=== PATIENT | male | born 1940 | race Caucasian/White ===

== ENCOUNTER → 2016-12-07 | Outpatient (CLI) | payer MEDICARE ==
[2016-12-07 12:29] LABS: Blood Urea Nitrogen 14 mg/dL (9-20); Non-African American GFR(MDRD) >60 (>60 ml/min/1.73 sqM)
--- NOTE | 2016-12-07 13:49 | CT ---
"EXAMINATION TYPE: CT soft tissue neck w con DATE OF EXAM: 12/07/2016 HISTORY: Left sided tongue swelling and difficulty talking COMPARISON: CT neck dated 10/17/2015. CT DLP: 397.1 mGycm. Automated Exposure Control for Dose Reduction was Utilized. TECHNIQUE: CT scan of the neck is performed with IV Contrast, patient injected with 100 mL of Omnipa que 300, axial images are obtained, coronal and sagittal reformatted images are reviewed. FINDINGS: Centered within the anterior two thirds of the lateral right tongue there is an ill-defined area of h yperattenuation measuring at least 4.2 x 1.4 x 3.5 cm. Adjacent adenopathy is described below. There is no airway compromise although there is slight narrowing of the oropharynx as there is edema of the tongue base. There is asymmetric enlargement of the right submandibular gland in comparison to the l eft. Parotid/submandibular glands: No gross abnormality seen. Carotid/Vascular Structures: As noted on the prior examination of 10/17/2015 there is significant ost ial atherosclerosis at the origin of the left vertebral artery. Additionally calcific atherosclerosis is seen at the bilateral carotid bulbs, right greater than left similar to the prior examination wit h at least 30% stenosis on the right. Osseous Structures: No suspicious osseous lesions are seen. Degenerative changes of the cervical spin e are present as well as straightening of the usual cervical lordosis. Other: A centrally necrotic 1.5 x 1.5 cm right upper lobe pulmonary mass the proximal abutting the pl eural surface has developed in the interim and the background of mild centrilobular emphysematous cari nges. Additionally within the pmaoa-[id number] in the medial right upper lobe near the azygo-esophageal recess an additional 1.3 cm pulmonary nodule is identified as well as partial visualization of a pleu ral-based 2 mm pulmonary nodule in the left lower lobe. Lastly within the left upper lobe a 7 mm pulm onary nodule near the ascending aorta and mediastinal border is now seen. Mediastinal clips and jade otomy wires are present from prior coronary artery bypass. Calcific atheromatous changes are also see n in the ascending aorta. Multiple prominent mediastinal lymph nodes are partially visualized. Left s upraclavicular adenopathy, and necrotic anterior cervical chain lymph with impression upon the nutrition intern al jugular vein on series 3 image 58 is seen. Submental and submandibular adenopathy is also seen jose aterally as well as anterior cervical chain lymph nodes on the right measuring up to 1.2 cm in short axis. Fat stranding is seen posterior to the right sternocleidomastoid at the level of the hyoid bone where additional enlarged lymph nodes are present. IMPRESSION: 1. Heterogenous mass centered in the anterior two thirds of the right tongue at the right lateral mar gin. No apparent involvement of the tongue base. Extensive adenopathy of the head, neck, and to a les ser degree the mediastinum as well as at least 4 new pulmonary nodules. Findings are concerning for h ead and neck carcinoma such as squamous cell carcinoma with metastasis versus primary pulmonary neopl asm or synchronous cancers. A Red message has been communicated to Usman Silva DO via the [employer] | Critical Re sult system on 12/07/2016 1:47 PM, Message ID [id number]."
== END | disposition home or self-care (01) ==
LOC: RADCTMAIN 11:59
PROVIDERS: ATTEND Otolaryngology
DX: K14.8 Other diseases of tongue (principal); R59.0 Localized enlarged lymph nodes
CPT/HCPCS: 82565; 84520; 70491; 36415; Q9967

== ENCOUNTER → 2016-12-19 | Outpatient (CLI) | payer MEDICARE ==
--- NOTE | 2016-12-20 09:49 | PE ---
EXAMINATION TYPE: PET CT fusion skull to thigh DATE OF EXAM: 12/19/2016 COMPARISON: CT soft tissue neck 12/07/2016 Prior PET/CT: None HISTORY: Tongue cancer, postsurgical TECHNIQUE: Following the intravenous administration of 15.5 mCi of F-18 FDG, whole body images are p erformed from the skull base to the midthigh. Images are reviewed on the computer in the coronal, ax ial, and sagittal planes. Reconstructed rotating images are created on independent workstation and r eviewed on the computer. A localization and attenuation correction CT is performed in conjunction w ith the PET scan. DLP: 359.43 mGycm SCAN: Initial Blood glucose: 137 mg/dL Average Mediastinum SUV: 1.3 Average Liver SUV: 2.2 FINDINGS: NECK: There is increased uptake within the right aspect of the tongue region. This has an SUV value of 9.6 compatible with the patient's reported tonsillar neoplasm. There is some focal radiotracer ac cumulation along the posterior lateral right tongue which is an extension of the patient's primary. There is focal radiotracer accumulation within the right parapharyngeal space with an SUV value of 4. 3 compatible with a metastatic lesion. There are multiple lymph nodes with increased radiotracer acc umulation within the neck probably along the right side. This includes radiotracer below the sternocl eidomastoid muscle on the right measuring 4.5 SUV, below the right parotid gland measuring 5.6, subma ndibular uptake of 10.4. There is also abnormal uptake within the right mandible with an SUV value of 8.1 and within the anterior left mandible measuring 5.1 submental uptake measures 6.6 and is left of midline. There is left submandibular uptake measuring 9.0 left submandibular uptake measures 10.0. L eft jugulodigastric lymphadenopathy is abnormal uptake. There is some subtle uptake in the right supr aclavicular region with an SUV value of 4.5 suspicious for an additional metastatic lesion at the lev el of the thyroid. This last area appears better visualized on the whole body imaging. THORAX: There is focal radiotracer accumulation within a posterior lateral right upper lobe mass with an SUV value of 7.8. A posterior medial lesion adjacent to the mediastinum within the right lung has an SUV value of 6.2. PET image 81 abnormal uptake is within the lingula with an SUV value 2.2 suspic ious for small metastatic lesion. ABDOMEN: Liver is somewhat heterogenous. Suspicious focal uptake is not identified. PELVIS: Increased radiotracer accumulation is at the level of the rectum with an SUV value of 2.9. Ev aluation of this area is recommended. OSSEOUS STRUCTURES: There is some uptake at the right acromioclavicular junction which can be compati ble with inflammatory change. Suspicious uptake was discussed on CT of the neck within the mandible o n the right and left. Additional suspicious metastatic lesions are not identified. LOCALIZATION CT: Cholelithiasis. Prostate is prominent. The ascending thoracic aorta at the level the main pulmonary artery measures 3.5 cm. The main pulmonary artery at the bifurcation measures 3.0 cm . The lymph node adjacent to the main pulmonary artery has an SUV value 1.1 which could be inflammato ry in nature. COMPARISON: Uptake within multiple enlarged nodes on the comparison CT examination and are evident PE T scan. PET scan better demonstrates the metastatic lesions as some of these lymph nodes are borderli ne in size. IMPRESSION: 1. Patient's right-sided tongue neoplasm has marked elevation of radiotracer. 2. Multiple lymph nodes within the neck on both left and right sides as well as submental region on r ight parapharyngeal space and right supraclavicular region are evident compatible with metastatic les ions present bilaterally. 3. Multiple bilateral lung nodules with elevated radiotracer compatible with metastatic lesions. Abno rmal mediastinal adenopathy however is not identified. 4. There is some abnormal uptake within the right and left mandible which could be metastatic lesions . Additional osseous metastases are not identified.
== END | disposition home or self-care (01) ==
LOC: RADPETMAIN 09:10
PROVIDERS: ATTEND Internal Medicine Hematology & Oncology
DX: C76.0 Malignant neoplasm of head, face and neck (principal); R91.8 Other nonspecific abnormal finding of lung field
CPT/HCPCS: 78815; A9552

== ENCOUNTER 2016-12-31 08:46 | Day surgery (SDC) | payer MEDICARE ==
[2016-12-31] MEDS ORDERED: HYDROmorphone 1 MG/ML 1 ML SYRINGE IVP PRN (09:09)
[2016-12-31 09:14] VITALS: RESP 20; TEMP 98
[2016-12-31 09:18] LABS: Mean Platelet Volume 7.5
[2016-12-31 09:24] LABS: INR 1.1 (<1.2); Prothrombin Time 11.2 sec (9.0-12.0)
[2016-12-31 10:10] VITALS: BP 158/67; PULSE 75
--- NOTE | 2016-12-31 10:38 | CT ---
EXAMINATION TYPE: CT discontinued procedure DATE OF EXAM: 12/31/2016 COMPARISON: NONE HISTORY: Lung mass CT DLP: 434 mGycm Automated exposure control for dose reduction was used. FINDINGS: The risks and complications were discussed with the patient. The patient refused the procedure. IMPRESSION: PATIENT DEFERRED THE PROCEDURE.
== END 2016-12-31 10:30 | disposition home or self-care (01) ==
LOC: RADPROMAIN 08:46
PROVIDERS: ATTEND Internal Medicine Hematology & Oncology
DX: R91.8 Other nonspecific abnormal finding of lung field (principal); Z53.20 Procedure and treatment not carried out because of patient's decision for unspecified reasons; C76.0 Malignant neoplasm of head, face and neck
CPT/HCPCS: 36415; 76380; 85049; 85610

== ENCOUNTER → 2017-03-13 | Outpatient (CLI) | payer MEDICARE ==
--- NOTE | 2017-03-14 14:18 | PE ---
Nuclear medicine PET/CT HISTORY: Head and neck cancer, subsequent visit Patient received 14.5 mCi of F-18 FDG intravenously. Delayed scanning was performed from the skull ba se to the mid thighs. Small [id number] imaging performed through the head and neck. Correlation to prior nuclear medicine PET/CT 12/19/2016. Head and neck: Multiple bilateral foci of hypermetabolic uptake corresponding to lymph nodes are pres ent, bilateral submandibular location, bilateral nodes at the level of the hyoid bone are enlarged. S UV is 3.4-5.4. More inferiorly deep to the sternocleidomastoid muscle there are nonenlarged nodes whi ch show hypermetabolic uptake, SUV is 2.6 on the right. The right side of the tongue shows hypermetab olic uptake. SUV is 7.6. More inferiorly towards the base of the tongue the right side of the vallecu la occurs of hypermetabolic uptake is present, SUV is 4.5. Parapharyngeal uptake seen on previous exa m is no longer seen on the right. Multiple bilateral nodes have decreased in size as compared to prev ious exam. There is some improvement in hypermetabolic uptake as compared to prior exam. CHEST: Right upper lobe pleural-based posterior soft tissue nodule measures 18 mm which is decreased from prior exam when it measured 21 mm. There is associated hypermetabolic uptake. SUV is 7. The righ t lower lobe nodule seen on prior exam which measured approximately 18 mm now only measures approxima tely 8 to 9 mm in size. Abdomen pelvis: Gallstones are noted. No evident adrenal or liver mass. No suspicious hypermetabolic uptake. Osseous structures are remarkable for a focus of uptake in the right maxilla, SUV 3.6 possibly relate d to dental disease, recommend direct visualization. Generalized marrow activity may be due to therap y. IMPRESSION: There is tumor response to therapy.
== END | disposition home or self-care (01) ==
LOC: RADPETMAIN 07:42
PROVIDERS: ATTEND Internal Medicine Hematology & Oncology
DX: C76.0 Malignant neoplasm of head, face and neck (principal)
CPT/HCPCS: 78815; A9552

== ENCOUNTER → 2017-07-03 | Outpatient (CLI) | payer MEDICARE ==
--- NOTE | 2017-07-04 16:04 | PE ---
EXAMINATION TYPE: PET CT fusion skull to thigh DATE OF EXAM: 07/03/2017 COMPARISON: 12/07/2016 Prior PET/CT: 03/13/2017 HISTORY: Tongue cancer TECHNIQUE: Following the intravenous administration of 13.037 mCi of F-18 FDG, whole body images are performed from the skull base to the midthigh. Images are reviewed on the computer in the coronal, axial, and sagittal planes. Reconstructed rotating images are created on independent workstation and reviewed on the computer. A localization and attenuation correction CT is performed in conjunction with the PET scan. DLP: 67.6 by mGycm SCAN: Subsequent follow-up Blood glucose: 120 mg/dL Average Mediastinum SUV: 1.78 Average Liver SUV: 2.54 FINDINGS: NECK: There is intense uptake within the region of the right aspect of the tongue. Some mass effect is evident. The SUV value of 6.35 compatible with neoplasm. This extends to the right posterior later al region of the tongue near the right tonsillar pillar. There are 2 hyperintense lymph nodes in the submandibular region on the right with an SUV value of 3. 18 and 3.53. PET image 28. A more subtle area of uptake is in the contralateral left submandibular re gion with an SUV value 2.33 again suspicious for metastatic lesion. A lymph node in the parotid regio n has an SUV of 3.72 suspicious for metastasis. Additional lymph nodes are in the jugulodigastric reg ions bilaterally with SUV values of 3.19 on the left and 2.98 on the right. Uptake within the right s ternocleidomastoid muscle region at image 43 has an SUV value 2.59. Dedicated head and neck imaging is performed. This better delineates the abnormal uptake within the r ight aspect of the tongue as well as within the bilateral lymphadenopathy. THORAX: There is a focal area of marked increased radiotracer in the posterior lateral right apex wit h an SUV value of 8.5 suspicious for neoplasm. Small focus of radiotracer accumulation may be within the left internal mamillary chain with an SUV value 1.3. PET image 79 This could be inflammatory but is very small and could be early metastasis. Couple of additional areas of increased uptake in an int ermediate range are in the right internal mamillary chain region measuring SUV value 1.17. A suspicio us lymph node is in the posterior lateral superior mediastinum PET image 85. With an SUV value of 8.4 6 suspicious for metastasis. Image 82 ABDOMEN: No abnormal uptake PELVIS: No abnormal uptake OSSEOUS STRUCTURES: There is abnormal uptake within the mid thoracic vertebral body posterior lateral right aspect with an SUV value of 3.42 suspicious for osseous metastasis. LOCALIZATION CT: Lymphadenopathy in the right submandibular region measures 0 cm in transverse dimens ion. Lymphadenopathy within the left submandibular region measures 0.8 cm. Jugulodigastric lymphadeno roe measures 1.3 cm left and 1.0 cm on the right. Note is made of some asymmetry within the hypopha rynx on the right which does not have abnormal uptake on the PET scan. The tongue mass is not discret kym identified although the asymmetry due to the timing mass is evident. Note is made of cholelithias is. Lung mass in the posterior lateral periphery right apex measures 4.2 x 2.9 cm on mediastinal windows. Series 8 image 69. The nodule within the medial right lung measures 1.7 cm. Series 9. COMPARISON: Lymphadenopathy within the neck is more extensive and more numerous than on the compariso n study of 03/13/2017. This extends further down the chain towards the supraclavicular region as well as additional lymph nodes present bilaterally. The mass in the posterior lateral right apex has incr eased in size over the interval. Medial right lung nodule is increased in size. The metastatic lesion within the thoracic spine is new. IMPRESSION: 1. Worsening distribution of metastatic disease including additional bilateral lymphadenopathy within the cervical chain nodes, increasing size of the right apical lung mass and new uptake identified in the mediastinal lymph node and within the mid thoracic vertebral body.
== END | disposition home or self-care (01) ==
LOC: RADPETMAIN 12:14
PROVIDERS: ATTEND Internal Medicine Hematology & Oncology
DX: C76.0 Malignant neoplasm of head, face and neck (principal); C79.51 Secondary malignant neoplasm of bone; C77.0 Secondary and unspecified malignant neoplasm of lymph nodes of head, face and neck; C78.1 Secondary malignant neoplasm of mediastinum; C78.00 Secondary malignant neoplasm of unspecified lung
CPT/HCPCS: 78815; A9552

== ENCOUNTER 2017-09-21 17:23 | Observation (INO) | payer MEDICARE ==
[2017-09-21] MEDS ORDERED: ONDANSETRON 4 MG/2 ML VIAL IVP STA (17:55)
--- NOTE | 2017-09-21 17:58 | ED ---
General Adult HPI - General Chief complaint: Weakness Stated complaint: weakness Time Seen by Provider: 09/21/17 17:27 Source: patient, EMS Mode of arrival: EMS Limitations: no limitations - History of Present Illness Initial comments: Patient is a 77-year-old male presents with a chief complaint of generalized weakness. He has a history of oral cancer for which she underwent chemotherapy and is now under another treatment that he is unsure of. The patient states that he receive an injection of an unknown medication by his oncologist on Wednesday. Since that time he has rapidly declined to the point where he is unable to stand himself up. Patient cannot identify any inciting incident since. Denies any other symptoms. There are no aggravating or alleviating factors. Timing is constant. - Related Data Home Medications Medication Instructions Recorded Confirmed HYDROcodone/APAP 10-325MG [[place] 1 tab PO Q6HR PRN 09/21/17 09/21/17 10-325] fentaNYL 25MCG/HR PATCH [[place]ages[place] 1 patch TRANSDERM Q72H 09/21/17 09/21/17 25MCG/HR] Allergies Allergy/AdvReac Type Severity Reaction Status Date / Time empagliflozin [From Glyxambi] Allergy Rash/Hives Verified 09/21/17 17:50 linagliptin [From Glyxambi] Allergy Rash/Hives Verified 09/21/17 17:50 Review of Systems ROS Statement: Those systems with pertinent positive or pertinent negative responses have been documented in the HPI. ROS Other: All systems not noted in ROS Statement are negative. Gastrointestinal: Reports: nausea, vomiting Past Medical History Past Medical History: Coronary Artery Disease (CAD), Cancer, Diabetes Mellitus, Hyperlipidemia, Hypertension Additional Past Medical History / Comment(s): SLIGHT ANEMIA. SQUAMOUS CELL TONGUE, NECK CANCER. History of Any Multi-Drug Resistant Organisms: None Reported Past Surgical History: Coronary Bypass/CABG, Heart Catheterization, Hernia Repair, Tonsillectomy Additional Past Surgical History / Comment(s): UMBILICAL & INGUINAL HERNIA. Past Anesthesia/Blood Transfusion Reactions: No Reported Reaction Past Psychological History: No Psychological Hx Reported Smoking Status: Former smoker Past Alcohol Use History: Occasional Past Drug Use History: None Reported - Past Family History Father Family Medical History: Coronary Artery Disease (CAD) Mother Family Medical History: Cancer General Exam Limitations: no limitations General appearance: alert, in no apparent distress Head exam: Present: atraumatic, normocephalic Eye exam: Present: normal appearance, PERRL ENT exam: Present: normal exam, mucous membranes moist Neck exam: Present: lymphadenopathy, other (patient has what appears to be post radiation changes to the neck. ) Respiratory exam: Present: normal lung sounds bilaterally. Absent: respiratory distress, wheezes Cardiovascular Exam: Present: regular rate, normal rhythm GI/Abdominal exam: Present: soft. Absent: distended, tenderness Rectal exam: Present: deferred Extremities exam: Present: normal inspection, full ROM. Absent: joint swelling , calf tenderness Back exam: Present: normal inspection Neurological exam: Present: alert, oriented X3 Psychiatric exam: Present: normal affect, normal mood Skin exam: Present: warm, dry, intact Course Vital Signs 09/21/17 17:35 Temperature 97.5 F L Pulse Rate 65 Respiratory 16 Rate Blood Pressure 141/81 O2 Sat by Pulse 95 Oximetry Medical Decision Making - Medical Decision Making Patient presents to the chief complaint of generalized weakness that has been getting worse over the last 3 days. On initial evaluation, vital signs are stable, patient in no distress. They'll be evaluated with basic labs, liver profile, troponin, EKG, and urinalysis. Patient will be given 2 L of IV fluid, and Zofran for nausea. 7:15 PM Lab evaluation this patient is unremarkable. Currently pending results of chest x-ray. On reevaluation, the patient states that he is not feeling improved. I had a lengthy discussion with the patient and his regarding management options. She decision-making was used to decide that the patient will be admitted for consult to social work. This case was discussed with Dr. Manriquez who accepts admission with consult to Dr. murphy. patient and agreeable with care plan. patient remains stable in the emergency department. 7:42 PM CXR shows multiple lung densities consistent with metastatic disease. when compared to previous CT the left lateral soft tissue mas has grown to 5cm. patient made aware of the findings. Patient stable for transfer to the floor. - Lab Data Result diagrams: 09/21/17 17:31 09/21/17 17:31 Lab Results 09/21/17 09/21/17 09/21/17 Range/Units 17:31 17:31 17:31 WBC 7.5 (3.8-10.6) k/uL RBC 3.99 L (4.30-5.90) m/uL Hgb 11.2 L (13.0-17.5) gm/dL Hct 34.1 L (39.0-53.0) % MCV 85.3 (80.0-100.0) fL MCH 28.2 (25.0-35.0) pg MCHC 33.0 (31.0-37.0) g/dL RDW 14.6 (11.5-15.5) % Plt Count 378 (150-450) k/uL Neutrophils % 80 % Lymphocytes % 12 % Monocytes % 6 % Eosinophils % 1 % Basophils % 0 % Neutrophils # 6.0 (1.3-7.7) k/uL Lymphocytes # 0.9 L (1.0-4.8) k/uL Monocytes # 0.5 (0-1.0) k/uL Eosinophils # 0.0 (0-0.7) k/uL Basophils # 0.0 (0-0.2) k/uL PT 11.7 (9.0-12.0) sec INR 1.2 H (<1.2) Sodium 139 (137-145) mmol/L Potassium 4.2 (3.5-5.1) mmol/L Chloride 103 (98-107) mmol/L Carbon Dioxide 24 (22-30) mmol/L Anion Gap 12 mmol/L BUN 20 (9-20) mg/dL Creatinine 0.78 (0.66-1.25) mg/dL Est GFR (CKD-EPI)AfAm >90 (>60 ml/min/1.73 sqM) Est GFR (CKD-EPI)NonAf 86 (>60 ml/min/1.73 sqM) Glucose 112 H (74-99) mg/dL Calcium 11.2 H (8.4-10.2) mg/dL Total Bilirubin 1.0 (0.2-1.3) mg/dL AST 33 (17-59) U/L ALT 31 (21-72) U/L Alkaline Phosphatase 106 (38-126) U/L Troponin I (0.000-0.034) ng/mL Total Protein 6.5 (6.3-8.2) g/dL Albumin 3.2 L (3.5-5.0) g/dL 09/21/17 Range/Units 17:31 WBC (3.8-10.6) k/uL RBC (4.30-5.90) m/uL Hgb (13.0-17.5) gm/dL Hct (39.0-53.0) % MCV (80.0-100.0) fL MCH (25.0-35.0) pg MCHC (31.0-37.0) g/dL RDW (11.5-15.5) % Plt Count (150-450) k/uL Neutrophils % % Lymphocytes % % Monocytes % % Eosinophils % % Basophils % % Neutrophils # (1.3-7.7) k/uL Lymphocytes # (1.0-4.8) k/uL Monocytes # (0-1.0) k/uL Eosinophils # (0-0.7) k/uL Basophils # (0-0.2) k/uL PT (9.0-12.0) sec INR (<1.2) Sodium (137-145) mmol/L Potassium (3.5-5.1) mmol/L Chloride (98-107) mmol/L Carbon Dioxide (22-30) mmol/L Anion Gap mmol/L BUN (9-20) mg/dL Creatinine (0.66-1.25) mg/dL Est GFR (CKD-EPI)AfAm (>60 ml/min/1.73 sqM) Est GFR (CKD-EPI)NonAf (>60 ml/min/1.73 sqM) Glucose (74-99) mg/dL Calcium (8.4-10.2) mg/dL Total Bilirubin (0.2-1.3) mg/dL AST (17-59) U/L ALT (21-72) U/L Alkaline Phosphatase (38-126) U/L Troponin I 0.021 (0.000-0.034) ng/mL Total Protein (6.3-8.2) g/dL Albumin (3.5-5.0) g/dL Disposition Clinical Impression: Weakness, Unsteady gait Disposition: ADMITTED IP TO THIS [facility] Condition: Good Referrals: Harry Manriquez MD [Primary Care Provider] - 1-2 days Decision to Admit Reason: Admit from [facility] - Out of Hospital Transfer - Req. Specs Out of Hospital Transfer - Requested Specifics: Other Non-Acute
[2017-09-21 18:14] LABS: Basophils % (A) 0 %; Eosinophils % (A) 1 %; HCT 34.1 % (39.0-53.0); HGB 11.2 gm/dL (13.0-17.5); Lymphocytes # (A) 0.9 k/uL (1.0-4.8); Lymphocytes % (A) 12 %; MCH 28.2 pg (25.0-35.0); MCV 85.3 fL (80.0-100.0); Mean Platelet Volume 6.8; Monocytes # (A) 0.5 k/uL (0-1.0); Monocytes % (A) 6 %; Neutrophils % (A) 80 %; Platelet Count 378 k/uL (150-450); RBC 3.99 m/uL (4.30-5.90); RDW 14.6 % (11.5-15.5); WBC 7.5 k/uL (3.8-10.6)
[2017-09-21] MEDS: SODIUM CHLORIDE 0.9% 2,000 ML IV ONE (18:22)
[2017-09-21 18:29] LABS: ALT 31 U/L (21-72); AST 33 U/L (17-59); Albumin 3.2 g/dL (3.5-5.0); Alkaline Phosphatase 106 U/L (38-126); Anion Gap 12 mmol/L; Blood Urea Nitrogen 20 mg/dL (9-20); Calcium 11.2 mg/dL (8.4-10.2); Carbon Dioxide 24 mmol/L (22-30); Chloride 103 mmol/L (98-107); Glucose 112 mg/dL (74-99); INR 1.2 (<1.2); Potassium 4.2 mmol/L (3.5-5.1); Prothrombin Time 11.7 sec (9.0-12.0); Sodium 139 mmol/L (137-145); Total Protein 6.5 g/dL (6.3-8.2)
--- NOTE | 2017-09-21 19:08 | XR ---
EXAMINATION TYPE: XR chest 2V DATE OF EXAM: 09/21/2017 COMPARISON: CT neck 12/07/2016 HISTORY: Chest pain TECHNIQUE: Frontal and lateral views of the chest are obtained. FINDINGS: Heart size is normal. There is a rounded 5 cm soft tissue mass density in the lateral righ t upper lobe. There are multiple smaller pulmonary nodules in the lungs are measure up to 1 cm. There is a 2.5 cm nodular density at the left cardiac border. Costophrenic angles are clear. Thoracic aort a is atheromatous. There are sternal wires. There is anterior wedging of T7 with 40% loss of height. IMPRESSION: Multiple pulmonary densities consistent with metastatic disease. The right upper lobe ma ss has increased from 1.[address] scan of 12/07/2016 to 5 cm on today's exam.
[2017-09-21] MEDS ORDERED: ONDANSETRON 4 MG/2 ML VIAL IVP PRN (19:11)
[2017-09-21] MEDS ORDERED: NALOXONE 0.4 MG/ML 1 ML VIAL IV PRN (19:11)
[2017-09-21 20:32] LABS: Appearance,Urine Clear (Clear); Bilirubin,Urine Negative (Negative); Blood,Urine Negative (Negative); Color,Urine Yellow; Glucose,Urine (UA) Negative (Negative); Ketones,Urine Trace (Negative); Leukocyte Esterase,Urine Negative (Negative); Nitrite,Urine Negative (Negative); Protein,Urine Negative (Negative); Specific Gravity,Urine 1.011 (1.001-1.035); Urobilinogen,Urine <2.0 mg/dL (<2.0)
[2017-09-21 21:26] VITALS: BMI 19.5
[2017-09-21] MEDS: oxyCODONE-APAP 5-325MG 1 EACH TAB PO PRN (21:47)
[2017-09-22] MEDS: oxyCODONE-APAP 5-325MG 1 EACH TAB PO PRN ×3 (06:16→21:59)
[2017-09-22 08:16] LABS: Basophils % (A) 0 %; Eosinophils % (A) 1 %; HCT 29.6 % (39.0-53.0); Lymphocytes # (A) 0.8 k/uL (1.0-4.8); Lymphocytes % (A) 12 %; MCH 27.9 pg (25.0-35.0); MCHC 32.6 g/dL (31.0-37.0); MCV 85.6 fL (80.0-100.0); Mean Platelet Volume 6.7; Monocytes # (A) 0.4 k/uL (0-1.0); Monocytes % (A) 6 %; Neutrophils # (A) 5.2 k/uL (1.3-7.7); Neutrophils % (A) 80 %; Platelet Count 329 k/uL (150-450); RBC 3.45 m/uL (4.30-5.90); RDW 14.5 % (11.5-15.5); WBC 6.5 k/uL (3.8-10.6)
[2017-09-22 08:17] LABS: Anion Gap 11 mmol/L; Blood Urea Nitrogen 17 mg/dL (9-20); Calcium 10.5 mg/dL (8.4-10.2); Carbon Dioxide 22 mmol/L (22-30); Chloride 106 mmol/L (98-107); Glucose 77 mg/dL (74-99); HGB 9.6 gm/dL (13.0-17.5); Potassium 3.6 mmol/L (3.5-5.1); Sodium 139 mmol/L (137-145)
--- NOTE | 2017-09-22 11:10 | P.HPIM ---
History of Present Illness 77-year-old male presented the emergency room with complaints of generalized weakness. Patient is on chemotherapy for oral cancer and metastatic lung cancer. Patient is rapidly declining unable to stand at this time. Plan is for psych social worker to evaluate living situation. Patient wants to live at home hopefully we can get some home care for him. Patient will be seen by oncology Review of Systems Constitutional: Reports fatigue, Reports lethargy Ears, nose, mouth and throat: Reports mouth pain Gastrointestinal: Reports loss of appetite Psychiatric: Reports depression Past Medical History Past Medical History: Coronary Artery Disease (CAD), Cancer, Diabetes Mellitus, Hyperlipidemia, Hypertension Additional Past Medical History / Comment(s): SLIGHT ANEMIA. SQUAMOUS CELL TONGUE, NECK CANCER. History of Any Multi-Drug Resistant Organisms: None Reported Past Surgical History: Coronary Bypass/CABG, Heart Catheterization, Hernia Repair, Tonsillectomy Additional Past Surgical History / Comment(s): UMBILICAL & INGUINAL HERNIA. Past Anesthesia/Blood Transfusion Reactions: No Reported Reaction Past Psychological History: No Psychological Hx Reported Smoking Status: Former smoker Past Alcohol Use History: Occasional Additional Past Alcohol Use History / Comment(s): QUIT 22 YRS AGO (APPROX. 1993) . SMOKED 1PPD OR MORE. Past Drug Use History: None Reported - Past Family History Father Family Medical History: Coronary Artery Disease (CAD) Mother Family Medical History: Cancer Medications and Allergies Home Medications Medication Instructions Recorded Confirmed Type HYDROcodone/APAP 10-325MG [[place] 1 tab PO Q6HR PRN 09/21/17 09/21/17 History 10-325] fentaNYL 25MCG/HR PATCH [Duragesic 1 patch TRANSDERM Q72H 09/21/17 09/21/17 History 25MCG/HR] Allergies Allergy/AdvReac Type Severity Reaction Status Date / Time empagliflozin [From Glyxambi] Allergy Rash/Hives Verified 09/21/17 17:50 linagliptin [From Glyxambi] Allergy Rash/Hives Verified 09/21/17 17:50 Physical Exam Vitals: Vital Signs Temp Pulse Pulse Resp BP BP Pulse Ox 09/22/17 08:00 69 18 09/22/17 06:20 98.9 F 69 18 104/55 100 09/21/17 21:30 100.4 F H 85 16 142/68 92 L 09/21/17 21:15 85 16 09/21/17 20:46 98.8 F 09/21/17 20:19 90 16 153/72 100 09/21/17 17:35 97.5 F L 65 16 141/81 95 Intake and Output 09/21/17 09/22/17 09/22/17 22:59 06:59 14:59 Intake Total 120 Balance 120 Intake: Oral 120 Other: Voiding Method Bedpan Bedpan Urinal Urinal # Voids 1 1 Weight 56.699 kg - Constitutional General appearance: thin - Neck Neck: lymphadenopathy Results CBC & Chem 7: 09/22/17 07:26 09/22/17 07:26 Labs: Abnormal Lab Results - Last 24 Hours (Table) 09/21/17 09/21/17 09/21/17 Range/Units 17:31 17:31 17:31 RBC 3.99 L (4.30-5.90) m/uL Hgb 11.2 L (13.0-17.5) gm/dL Hct 34.1 L (39.0-53.0) % Lymphocytes # 0.9 L (1.0-4.8) k/uL INR 1.2 H (<1.2) Glucose 112 H (74-99) mg/dL Calcium 11.2 H (8.4-10.2) mg/dL Albumin 3.2 L (3.5-5.0) g/dL Urine Ketones (Negative) 09/21/17 09/22/17 09/22/17 Range/Units 20:18 07:26 07:26 RBC 3.45 L (4.30-5.90) m/uL Hgb 9.6 L D (13.0-17.5) gm/dL Hct 29.6 L (39.0-53.0) % Lymphocytes # 0.8 L (1.0-4.8) k/uL INR (<1.2) Glucose (74-99) mg/dL Calcium 10.5 H (8.4-10.2) mg/dL Albumin (3.5-5.0) g/dL Urine Ketones Trace H (Negative) Chest x-ray: report reviewed Thrombosis Risk Factor Assmnt - Choose All That Apply Each Factor Represents 1 point: Medical pt on bed rest, Serious lung disease incl. 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
[2017-09-22] MEDS ORDERED: NYSTATIN 100,000 UNIT/ML SUSP 500,000 UNIT/5 ML CUP PO SCH (13:00)
[2017-09-22] MEDS: MAG HYDROX/AL HYDROX/SIMETH 30 ML, LIDOCAINE VISCOUS 30 ML, diphenhydrAMINE ELIXIR 75 M... PO SCH ×12 (14:38→21:52)
[2017-09-22] MEDS: SALT AND SODA MOUTHWASH 1,000 ML PO SCH ×2 (14:41→17:11)
[2017-09-22] MEDS ORDERED: RX INFO: IV CONTRAST WAS GIVEN 1 EACH MISC MISCELLANE PRN (14:58)
--- NOTE | 2017-09-22 15:25 | P.CONS ---
History of Present Illness - Reason for Consult Consult date: 09/22/17 s/p chemo head/neck malignancy Requesting physician: Eric Vazquez - Chief Complaint weakness, wt loss - History of Present Illness Pt presented to Dr. Manriquez PCP with "lump" feeling right side of tongue x 3 months, associated with voice changes and difficulty swallowing X 1 month, 20lb wt. loss 6 months, and intentional diet modification for swallowing. He was referred to Dr. Lemon, 4 cm mass mid right side of tongue found, palpable small right cervical lymphadenopathy, CT neck confirmed with incidental finding of 2 cm RUL pleural-based nodule, 12/17 biopsy and path confirmed squamous cell carcinoma, evaluated for surgery by Dr. Cheng, no surgery planned, staging PET showed extensive bilateral lymphadenopathy, supraclavicular lymphadenopathy and 2 areas in lung suspicious for malignancy. He started palliative treatment with carbo/taxotere in Jan 2017, external beam radiation added in Apr 2017, completed XRT Jun 2017, treatment CT in Jun showed increase in multiple pulmonary nodules, PET in July RUL lesion, mediastinal LN and mid T-spine involvement. Treatment options, including comfort care were discussed, pt decided on active treatment and was started on nivolumab in August and is s/p 3 cycles. Pt was broughtr to hospital as he is getting weaker, unable to tolerate much oral intake due to soreness of mouth and odynopahagia/dysphagia, he can hardly manage his own secretions, he will dry heave/wretch if he gets coughing but denies nausea or vomiting, no fever, JITENDRA, chest pain, abd pain, changes in bowel or bladder habits, swelling, he is requiring assistance with ADLs. Review of Systems 10 point ROS as stated in HPI Past Medical History Past Medical History: Coronary Artery Disease (CAD), Cancer, Diabetes Mellitus, Hyperlipidemia, Hypertension Additional Past Medical History / Comment(s): SLIGHT ANEMIA. SQUAMOUS CELL TONGUE, NECK CANCER. History of Any Multi-Drug Resistant Organisms: None Reported Past Surgical History: Coronary Bypass/CABG, Heart Catheterization, Hernia Repair, Tonsillectomy Additional Past Surgical History / Comment(s): UMBILICAL & INGUINAL HERNIA. Past Anesthesia/Blood Transfusion Reactions: No Reported Reaction Past Psychological History: No Psychological Hx Reported Smoking Status: Former smoker Past Alcohol Use History: Occasional Additional Past Alcohol Use History / Comment(s): QUIT 22 YRS AGO (APPROX. 1993) . SMOKED 1PPD OR MORE. Past Drug Use History: None Reported - Past Family History Father Family Medical History: Coronary Artery Disease (CAD) Mother Family Medical History: Cancer Medications and Allergies Home Medications Medication Instructions Recorded Confirmed Type HYDROcodone/APAP 10-325MG [[place] 1 tab PO Q6HR PRN 09/21/17 09/21/17 History 10-325] fentaNYL 25MCG/HR PATCH [Duragesic 1 patch TRANSDERM Q72H 09/21/17 09/21/17 History 25MCG/HR] Allergies Allergy/AdvReac Type Severity Reaction Status Date / Time empagliflozin [From Glyxambi] Allergy Rash/Hives Verified 09/21/17 17:50 linagliptin [From Glyxambi] Allergy Rash/Hives Verified 09/21/17 17:50 Physical Exam Vitals: Vital Signs Temp Pulse Pulse Resp BP BP Pulse Ox 09/22/17 08:00 69 18 09/22/17 06:20 98.9 F 69 18 104/55 100 09/21/17 21:30 100.4 F H 85 16 142/68 92 L 09/21/17 21:15 85 16 09/21/17 20:46 98.8 F 09/21/17 20:19 90 16 153/72 100 09/21/17 17:35 97.5 F L 65 16 141/81 95 Intake and Output 09/21/17 09/22/17 09/22/17 22:59 06:59 14:59 Intake Total 120 Balance 120 Intake: Oral 120 Other: Voiding Method Bedpan Bedpan Urinal Urinal # Voids 1 1 Weight 56.699 kg 56.699 kg - Constitutional frail, cachetic General appearance: thin - EENT ulcerations of the tongue Eyes: anicteric sclerae ENT: pharyngeal erythema, thrush - Neck lemon/[place] size mass in anterior neck, no supraclavicular or axillary adenopathy palpated Neck: no lymphadenopathy - Respiratory Respiratory: bilateral: diminished, rales - Cardiovascular Rhythm: regular Heart sounds: normal: S1, S2 Abnormal Heart Sounds: no systolic murmur, no diastolic murmur, no rub, no S3 Gallop, no S4 Gallop, no click, no other leg Peripheral Edema: bilateral: None - Gastrointestinal General gastrointestinal: no absent bowel sounds, no decreased bowel sounds, no distended, no hepatomegaly, no hyperactive bowel sounds, normal bowel sounds, no organomegaly, no rigid, scaphoid, soft, no splenomegaly, no tenderness, no umbilical hernia, no ventral hernia - Integumentary Integumentary: decreased turgor - Neurologic unable to manipulate tongue, speech is slurred - Musculoskeletal Musculoskeletal: generalized weakness - Psychiatric Psychiatric: A&O x's 3, appropriate affect, intact judgment & insight Results CBC & Chem 7: 09/22/17 07:26 09/22/17 07:26 Labs: Abnormal Lab Results - Last 24 Hours (Table) 09/21/17 09/21/17 09/21/17 Range/Units 17:31 17:31 17:31 RBC 3.99 L (4.30-5.90) m/uL Hgb 11.2 L (13.0-17.5) gm/dL Hct 34.1 L (39.0-53.0) % Lymphocytes # 0.9 L (1.0-4.8) k/uL INR 1.2 H (<1.2) Glucose 112 H (74-99) mg/dL Calcium 11.2 H (8.4-10.2) mg/dL Albumin 3.2 L (3.5-5.0) g/dL Urine Ketones (Negative) 09/21/17 09/22/17 09/22/17 Range/Units 20:18 07:26 07:26 RBC 3.45 L (4.30-5.90) m/uL Hgb 9.6 L D (13.0-17.5) gm/dL Hct 29.6 L (39.0-53.0) % Lymphocytes # 0.8 L (1.0-4.8) k/uL INR (<1.2) Glucose (74-99) mg/dL Calcium 10.5 H (8.4-10.2) mg/dL Albumin (3.5-5.0) g/dL Urine Ketones Trace H (Negative) Chest x-ray: report reviewed Assessment and Plan (1) Squamous cell carcinoma Narrative/Plan: Metastatic disease, s/p 3 cycles of nivolumab with progressive symptoms. CT of neck and chest ordered for comparison. Pt was very aware that this was the last option for treatment. We will review results of CT with pt and change plan of care accordingly based of the results. Current Visit: Yes Status: Acute Priority: High Code(s): C44.92 - SQUAMOUS CELL CARCINOMA OF SKIN, UNSPECIFIED SNOMED Code(s): 598484674 (2) Head and neck malignancy Current Visit: Yes Status: Acute Priority: High Code(s): C76.0 - MALIGNANT NEOPLASM OF HEAD, FACE AND NECK SNOMED Code(s): 398907017 (3) Mucositis (ulcerative) due to antineoplastic therapy Narrative/Plan: Kools/nystatin ordered along with salt and soda Current Visit: Yes Status: Acute Priority: High Code(s): K12.31 - ORAL MUCOSITIS (ULCERATIVE) DUE TO ANTINEOPLASTIC THERAPY SNOMED Code(s): 895873893 (4) Dysphagia Narrative/Plan: Pleasure foods to tolerance Current Visit: Yes Status: Acute Priority: High Code(s): R13.10 - DYSPHAGIA, UNSPECIFIED SNOMED Code(s): 41521493 (5) Antineoplastic chemotherapy induced anemia Narrative/Plan: Pt had iron infusion earlier this month for deficiency, will recheck and supplement as appropriate. No transfusion needed at this time Current Visit: Yes Status: Acute Priority: Low Code(s): D64.81 - ANEMIA DUE TO ANTINEOPLASTIC CHEMOTHERAPY; T45.1X5A - ADVERSE EFFECT OF ANTINEOPLASTIC AND IMMUNOSUP DRUGS, INIT SNOMED Code(s): 715632002
--- NOTE | 2017-09-22 16:55 | CT ---
"EXAMINATION TYPE: CT neck chest w con DATE OF EXAM: 09/22/2017 COMPARISON: PET/CT 07/03/2017 HISTORY: Hx of squamous cell CA to tongue CT DLP: 714 mGycm CONTRAST: Patient injected with 100 mL of Isovue 300. TECHNIQUE: Axial images at 3 mm thick sections. Reconstructed images in the coronal plane and sagitt al plane are reviewed. FINDINGS: Limited CT sections are obtained the lung apices. The lung apices appear clear. CT neck: The right torus tubarius and fossa of Rosenmuller appear dsouza than on the left. Records Management Technician spaces are normal. Paranasal sinuses are clear. Left mastoid air cells are clear. Right mastoid air cells may have mild opacification. Correlate for right mastoiditis. There is asymmetry of the tongue with increased density and scattered air along the right lateral ton ruperto level. There is fullness within the right submandibular region. Findings can be compatible with t patient's reported cancer the tongue. There are enlarged submandibular lymph nodes larger on the right than the left measuring 1.4 and 1.1 cm in size on the right measuring 0.9 cm on the left. Parotid glands are not well visualized. Submandibular glands are poorly visualized. Hypopharynx appears somewhat effaced on the right. The right piriform sinuses not visualized or is di splaced posteriorly. Vocal cord level is closed and cannot be well evaluated. Subglottic airway appea rs normal. The thyroid as visualized is normal. Degenerative changes are noted within osseous structures. Facet hypertrophy through the cervical spin e is evident. Please also see CT chest report for additional osseous metastasis identified. IMPRESSIONS: 1. Asymmetry of the tongue with enlarged right submandibular lymph nodes. 2. Torus tubarius and fossa of Rosenmuller are full on the right. 3. Right mastoiditis. 4. Findings are worsening from the localization and attenuation correction CT from the PET scan cely red to the current study. EXAMINATION TYPE: CT neck chest w con DATE OF EXAM: 09/22/2017 COMPARISON: 12/07/2016 HISTORY: Hx of squamous cell CA to tongue CT DLP: 714 mGycm, Automated exposure control for dose reduction was used. CONTRAST: Performed injected with 100 mL of Isovue 300. TECHNIQUE: Axial images were obtained at 5 mm thick sections. Reconstructed images are reviewed on [facility] computer in the coronal plane. FINDINGS: Portion of the thyroid visualized is normal. There is a 3.4 x 5.8 cm mass in the peripheral posterior lateral right upper lobe. Multiple additiona l pulmonary nodules are scattered throughout the bilateral lung evans. A mass is within the as ago e sophageal recess measuring 3.0 x 2.5 cm in size. These have enlarged from the comparison. No enlarged mediastinal or hilar adenopathy is evident. The ascending aorta diameter at the level o f the main pulmonary artery is 3.0 cm. The main pulmonary artery diameter at the bifurcation is 2.[address] sections are obtained through the upper abdomen. Abdomen is essentially unremarkable. Lytic lesion is in the superior medial left humeral head with erosion of the cortex. Degenerative cari nges are noted at the right shoulder. There is a lytic lesion within the sella right posterior latera l thoracic vertebral body. This may have some mild impression on spinal canal. IMPRESSIONS: 1. Enlarging right lung masses. 2. Multiple bilateral pulmonary nodules. 3. Lytic lesion within the right posterior lateral T7 vertebral level. A newly identified left ilir l head lytic lesion appears to be present. A Yellow level critical message alert has been initiated for Harry Manriquez MD via the [facility] 36 0 | Critical Results System on 09/22/2017 4:52 PM. This message alert has been sent to Harry Manriquez MD via the preferences provided by the clinician for the receipt of Radiology Critical Findings. [facility] ID [id number]."
[2017-09-22 17:43] LABS: Glucose,Whole Blood 107 mg/dL (75-99)
[2017-09-22 20:21] LABS: Glucose,Whole Blood 161 mg/dL (75-99)
[2017-09-22] MEDS: LORATADINE 10 MG TAB PO SCH (23:08)
[2017-09-23 00:05] LABS: Hemoglobin A1C 5.7 % (4.0-6.0)
[2017-09-23 07:07] LABS: Glucose,Whole Blood 101 mg/dL (75-99)
[2017-09-23] MEDS: SALT AND SODA MOUTHWASH 1,000 ML PO SCH ×2 (08:38→13:21)
[2017-09-23] MEDS: MAG HYDROX/AL HYDROX/SIMETH 30 ML, LIDOCAINE VISCOUS 30 ML, diphenhydrAMINE ELIXIR 75 M... PO SCH ×8 (08:39→13:21)
[2017-09-23] MEDS: LORATADINE 10 MG TAB PO SCH (08:40)
[2017-09-23] MEDS: oxyCODONE-APAP 5-325MG 1 EACH TAB PO PRN (11:37)
[2017-09-23 12:03] LABS: Iron Saturation 16.92 (15.00-50.00)
--- NOTE | 2017-09-23 12:05 | P.PN ---
Subjective Discussed case with oncology and they're recommending hospice care. Noted to have metastatic cancer to back and humerus on computed tomography scan Objective - Vital Signs Vital signs: Vital Signs Temp 97.8 F 09/23/17 05:30 Pulse 85 09/23/17 05:30 Resp 16 09/23/17 08:00 BP 109/53 09/23/17 05:30 Pulse Ox 99 09/23/17 05:30 Intake & Output 09/22/17 09/23/17 09/23/17 18:59 06:59 18:59 Intake Total 2040 590 480 Output Total 650 Balance 2040 -60 480 Weight 56.699 kg Intake: Oral 2040 590 480 Output: Urine 650 Other: Voiding Method Bedpan Bedpan Bedpan Urinal Urinal Urinal # Voids 2 - Constitutional General appearance: Present: mild distress, thin - EENT Ears: bilateral: normal - Neck Neck: Present: lymphadenopathy - Respiratory Respiratory: bilateral: diminished - Cardiovascular Rhythm: regular - Gastrointestinal General gastrointestinal: Present: soft - Integumentary Integumentary: Present: normal - Musculoskeletal Musculoskeletal: Present: generalized weakness - Psychiatric Psychiatric: Present: A&O x's 3, appropriate affect, intact judgment & insight - Labs CBC & Chem 7: 09/22/17 07:26 09/22/17 07:26 Labs: Abnormal Lab Results - Last 24 Hours (Table) 09/22/17 09/22/17 09/23/17 Range/Units 17:32 20:19 06:56 POC Glucose (mg/dL) 107 H 161 H 101 H (75-99) mg/dL - Imaging and Cardiology CT scan - chest: report reviewed Assessment and Plan Plan: Assessment Weakness and unsteady gait was squamous cell carcinoma of the tongue with metastatic cancer to lungs. T7 and humeral head Diabetes type 2 Hypertension Hyperlipidemia Plan continue care with the oncology Plan to transfer to hospice care
--- NOTE | 2017-09-23 12:10 | P.PN ---
Objective - Vital Signs Vital signs: Vital Signs Temp 97.8 F 09/23/17 05:30 Pulse 85 09/23/17 05:30 Resp 16 09/23/17 08:00 BP 109/53 09/23/17 05:30 Pulse Ox 99 09/23/17 05:30 Intake & Output 09/22/17 09/23/17 09/23/17 18:59 06:59 18:59 Intake Total 2040 590 480 Output Total 650 Balance 0 -60 480 Weight 56.699 kg Intake: Oral 0 590 480 Output: Urine 650 Other: Voiding Method Bedpan Bedpan Bedpan Urinal Urinal Urinal # Voids 2 - Constitutional General appearance: Present: mild distress, thin - EENT Eyes: Present: PERRLA Ears: bilateral: normal - Neck Neck: Present: lymphadenopathy - Respiratory Respiratory: bilateral: diminished - Cardiovascular Rhythm: regular - Gastrointestinal General gastrointestinal: Present: soft - Integumentary Integumentary: Present: normal - Neurologic Neurologic: Present: CNII-XII intact - Musculoskeletal Musculoskeletal: Present: generalized weakness - Psychiatric Psychiatric: Present: A&O x's 3, appropriate affect, intact judgment & insight - Labs CBC & Chem 7: 09/22/17 07:26 09/22/17 07:26 Labs: Abnormal Lab Results - Last 24 Hours (Table) 09/22/17 09/22/17 09/23/17 Range/Units 17:32 20:19 06:56 POC Glucose (mg/dL) 107 H 161 H 101 H (75-99) mg/dL Assessment and Plan Plan: Assessment Weakness unsteady gait Squamous cell carcinoma Metastatic Disease to Lung T7 and Humeral Head History of diabetes Hypertension Hyper lipidemia Coronary disease with history CABG Plan Continue consultation with oncology Hospice care
--- NOTE | 2017-09-23 12:19 | P.PN ---
Subjective Progress Note Date: 09/23/17 Principal diagnosis: weakness, anorexia, head/neck squamous cell caner Patient seen today in follow-up. He continues to have difficulty swallowing, painful swallowing, sore mouth, only minimal relief with supportive meds, appetite is poor. Objective - Vital Signs Vital signs: Vital Signs Temp 97.8 F 09/23/17 05:30 Pulse 85 09/23/17 05:30 Resp 16 09/23/17 08:00 BP 109/53 09/23/17 05:30 Pulse Ox 99 09/23/17 05:30 Intake & Output 09/22/17 09/23/17 09/23/17 18:59 06:59 18:59 Intake Total 2040 590 480 Output Total 650 Balance 2039 -60 480 Weight 56.699 kg Intake: Oral 2039 590 480 Output: Urine 650 Other: Voiding Method Bedpan Bedpan Bedpan Urinal Urinal Urinal # Voids 2 - Constitutional Constitutional Comment(s): frail, muscle wasting General appearance: Present: thin - EENT EENT Comment(s): deformed tongue, ulcerations and masses Eyes: Present: anicteric sclerae ENT: Present: pharyngeal erythema, thrush - Respiratory Respiratory: bilateral: CTA - Cardiovascular Heart sounds: normal: S1, S2 - Gastrointestinal General gastrointestinal: Present: scaphoid, soft - Musculoskeletal Musculoskeletal: Present: generalized weakness, strength equal bilaterally - Psychiatric Psychiatric: Present: A&O x's 3, appropriate affect, intact judgment & insight - Labs CBC & Chem 7: 09/22/17 07:26 09/22/17 07:26 Labs: Abnormal Lab Results - Last 24 Hours (Table) 09/22/17 09/22/17 09/23/17 Range/Units 17:32 20:19 06:56 POC Glucose (mg/dL) 107 H 161 H 101 H (75-99) mg/dL Assessment and Plan (1) Squamous cell carcinoma Current Visit: Yes Status: Acute Priority: High Code(s): C44.92 - SQUAMOUS CELL CARCINOMA OF SKIN, UNSPECIFIED SNOMED Code(s): 474877308 (2) Head and neck malignancy Current Visit: Yes Status: Acute Priority: High Code(s): C76.0 - MALIGNANT NEOPLASM OF HEAD, FACE AND NECK SNOMED Code(s): 835866062 (3) Mucositis (ulcerative) due to antineoplastic therapy Narrative/Plan: Continue supportive care Current Visit: Yes Status: Acute Priority: High Code(s): K12.31 - ORAL MUCOSITIS (ULCERATIVE) DUE TO ANTINEOPLASTIC THERAPY SNOMED Code(s): 555128436 (4) Dysphagia Current Visit: Yes Status: Acute Priority: High Code(s): R13.10 - DYSPHAGIA, UNSPECIFIED SNOMED Code(s): 15350351 (5) Antineoplastic chemotherapy induced anemia Current Visit: Yes Status: Acute Priority: Low Code(s): D64.81 - ANEMIA DUE TO ANTINEOPLASTIC CHEMOTHERAPY; T45.1X5A - ADVERSE EFFECT OF ANTINEOPLASTIC AND IMMUNOSUP DRUGS, INIT SNOMED Code(s): 044400146 Plan: Reviewed patient's CT of neck and chest with him today. Unfortunately, there is evidence of disease progression. Patient was very aware that nivolumab was the last line of therapy available for his type of malignancy. We reviewed prognosis being terminal and life expectancy likely less than 3 months. Patient desires to be kept comfortable and is agreeable to hospice care, he would like this care at home. Patient states he does have supportive individuals to help. Hospice consult will be placed. Comfort measures only, no CODE STATUS.
[2017-09-23] MEDS ORDERED: oxyCODONE-APAP 10-325MG 1 EACH TAB PO PRN (14:01)
[2017-09-23 14:21] VITALS: BP 101/47; PULSE 80; RESP 14; TEMP 100.1
== END 2017-09-23 14:57 | disposition home or self-care (01) ==
LOC: EC 17:23 → 5MS5E 19:11
PROVIDERS: ADMIT Family Medicine; ATTEND Family Medicine
DX: R53.1 Weakness (principal); R26.81 Unsteadiness on feet; R11.2 Nausea with vomiting, unspecified; C02.9 Malignant neoplasm of tongue, unspecified; C79.51 Secondary malignant neoplasm of bone; C78.01 Secondary malignant neoplasm of right lung; D64.81 Anemia due to antineoplastic chemotherapy; T45.1X5A Adverse effect of antineoplastic and immunosuppressive drugs, initial encounter; K12.31 Oral mucositis (ulcerative) due to antineoplastic therapy; Z92.21 Personal history of antineoplastic chemotherapy; B37.0 Candidal stomatitis; I25.10 Atherosclerotic heart disease of native coronary artery without angina pectoris; E11.9 Type 2 diabetes mellitus without complications; E78.5 Hyperlipidemia, unspecified; I10 Essential (primary) hypertension; D68.51 Activated protein C resistance; Z95.1 Presence of aortocoronary bypass graft; Z87.891 Personal history of nicotine dependence; Z87.01 Personal history of pneumonia (recurrent); Z92.3 Personal history of irradiation; Z79.891 Long term (current) use of opiate analgesic; Z88.8 Allergy status to other drugs, medicaments and biological substances; C44.92 Squamous cell carcinoma of skin, unspecified
CPT/HCPCS: 96361 ×2; 96374 ×2; 99285; 36415; 93005; 97162; 97166; 83921; 80053; 80048; 82728; 83540; 83550; 84484; 85025 ×2; 85610; 81003; 83036; 71046; 70491; 71260; G0378 ×3; J2405; Q9967

== ENCOUNTER 2017-09-23 14:58 | Inpatient (IN) | payer MEDICAID ==
[2017-09-23] MEDS ORDERED: LORazepam 1 MG TAB PO PRN (15:46)
[2017-09-23] MEDS ORDERED: ONDANSETRON 4 MG/2 ML VIAL IVP PRN (15:46)
[2017-09-23] MEDS ORDERED: ACETAMINOPHEN SUPPOSITORY 650 MG SUPP RECTAL PRN (15:46)
[2017-09-23] MEDS ORDERED: SCOPOLAMINE 1.5MG/72HR PATCH TRANSDERM PRN (15:46)
[2017-09-23] MEDS ORDERED: MORPHINE SULFATE 4 MG/ML SYRINGE IV PRN (15:46)
[2017-09-23 17:04] VITALS: BMI 19.5
[2017-09-23] MEDS: MAG HYDROX/AL HYDROX/SIMETH 30 ML, LIDOCAINE VISCOUS 30 ML, diphenhydrAMINE ELIXIR 75 M... PO SCH ×8 (17:14→21:26)
[2017-09-23] MEDS: oxyCODONE-APAP 10-325MG 1 EACH TAB PO PRN (18:29)
[2017-09-23] MEDS: DOCUSATE 100 MG CAP PO SCH (21:27)
[2017-09-23 23:26] VITALS: BP 106/52; PULSE 65; RESP 16; TEMP 98.9
[2017-09-24] MEDS: oxyCODONE-APAP 10-325MG 1 EACH TAB PO PRN ×2 (06:13→12:36)
[2017-09-24] MEDS: MAG HYDROX/AL HYDROX/SIMETH 30 ML, LIDOCAINE VISCOUS 30 ML, diphenhydrAMINE ELIXIR 75 M... PO SCH ×8 (08:03→12:27)
[2017-09-24] MEDS: DOCUSATE 100 MG CAP PO SCH (08:04)
[2017-09-24] MEDS ORDERED: LORATADINE 10 MG TAB PO SCH (09:00)
--- NOTE | 2017-09-24 21:42 | DS ---
DISCHARGE SUMMARY DATE OF SERVICE: 09/24/2017. FINAL DIAGNOSES: 1. Squamous cell carcinoma metastatic with T7 and humeral head METS. 2. Weakness and unsteady gait. 3. History of diabetes. 4. Hypertension. 5. Hyperlipidemia. 6. Coronary artery disease/coronary artery bypass grafting. 7. NO CODE AND NO CPR. 8. Hospice. HISTORY: This 77-year-old gentleman with a past medical history of multiple medical problems as mentioned earlier being followed by Dr. Harry Manriquez in the outpatient setting was being closely monitored. The case was discussed with family and the patient is on the transition to hospice at this time. Patient will be discharged with hospice recommendations. PHYSICAL EXAMINATION: On exam, vital signs are stable. Cardio system: S1, S2. Abdomen soft, no edema. Central nervous system: No focal deficits. DISCHARGE ADVICE AND MEDICATIONS: 1. Diet is cardiac diet as tolerated. 2. Follow up with Dr. Harry Manriquez p.r.n. 3. Tylenol suppository p.r.n. 4. Colace 100 mg p.o. b.i.d. 5. Fentanyl patch 25 mcg q.72 hours. 6. Hydrocodone 10 mg q.6h p.r.n. 7. Xylocaine viscous 30 mL p.o. q.i.d. p.r.n. 8. Ativan 1 mg q.8h p.r.n. 9. Oxycodone 10 mg q.4h p.r.n. 10.Scopolamine 1.5 mg q.72 hours patch. 11.Please discontinue hydrocodone. Once again, the patient being discharged in a stable condition with guarded prognosis. MMODL / IJN: [id number] /
== END 2017-09-24 13:47 | disposition hospice, home (50) | DRG 181 ==
LOC: 5MS5E 14:58
PROVIDERS: ADMIT Family Medicine; ATTEND Family Medicine
DX: C34.90 Malignant neoplasm of unspecified part of unspecified bronchus or lung (principal); C79.51 Secondary malignant neoplasm of bone; B37.0 Candidal stomatitis; Z87.891 Personal history of nicotine dependence; E11.9 Type 2 diabetes mellitus without complications; E78.5 Hyperlipidemia, unspecified; I10 Essential (primary) hypertension; I25.10 Atherosclerotic heart disease of native coronary artery without angina pectoris; Z51.5 Encounter for palliative care; Z95.1 Presence of aortocoronary bypass graft; R26.81 Unsteadiness on feet; C02.9 Malignant neoplasm of tongue, unspecified; C76.0 Malignant neoplasm of head, face and neck; Z66 Do not resuscitate; Z82.49 Family history of ischemic heart disease and other diseases of the circulatory system; Z88.8 Allergy status to other drugs, medicaments and biological substances; Z79.891 Long term (current) use of opiate analgesic